=== PATIENT | female | born 1980 | race Two or more races ===

== ENCOUNTER → 2024-10-27 | Outpatient (CLI) | payer BC, MEDICAID, SELFPAY ==
--- NOTE | 2024-10-27 14:11 | XR_ITS ---
Examination: Lumbar spine 3 views Technique one AP lateral coned lateral lower lumbar spine 3 views Exam date and time: October 27, 2024 at 1444 hours INDICATIONS: Low back pain radiating down the left back 3 months FINDINGS: Adequate alignment lumbar vertebral bodies Mild disc narrowing L5-S1 No lumbar fracture IMPRESSION: Mild degenerative disc disease L5-S1
== END | disposition home or self-care (01) ==
LOC: CDIM 14:00
PROVIDERS: PCP Family Medicine; Referring Provider Chiropractor; Visit Provider Chiropractor
DX: M51.379 Other intervertebral disc degeneration, lumbosacral region without mention of lumbar back pain or lower extremity pain (principal)
CPT/HCPCS: 72100